=== PATIENT | male | born 1955 | race Caucasian/White ===

== ENCOUNTER 2024-02-15 08:36 | Inpatient (IN) | payer OTHER, BC ==
[~2024-02-15] VITALS: Ht 154.9 cm; Wt 88.5 kg
[2024-02-15] MEDS ORDERED: METFORMIN HCL850 MG (09:08)
[2024-02-15] MEDS ORDERED: LOPERAMIDE2 M1 (09:08)
[2024-02-15] MEDS ORDERED: PRAVASTATIN SOD40 MG PO (09:09)
[2024-02-15] MEDS ORDERED: TENORMIN25 MG PO (09:09)
[2024-02-15] MEDS ORDERED: ZETIA10 MG (09:09)
[2024-02-15] MEDS ORDERED: HYDROCHLOROTH12.5 MG (09:10)
[2024-02-15] MEDS ORDERED: VASOTEC20 M1 PO (09:10)
[2024-02-15] MEDS ORDERED: 0.9 % SODIUM CHLORIDE 1,000 ML IV STA ×2 (09:50→15:37)
[2024-02-15] MEDS ORDERED: MEPERIDINE HCL/PF 50 MG/ML VIAL IM STA (09:51)
[2024-02-15 10:43] LABS: HEMATOCRIT 42.8 % (39.0-48.0); HEMOGLOBIN 14.4 g/dL (13-16.00); MEAN CELL VOLUME 96.9 fL (80.0-100.00); MEAN CORPUSCULAR HEMOGLOBIN 32.7 pg (27.00-32.0); MEAN CORPUSCULAR HGB CONC 33.8 g/dl (32.0-36.0); PLATELET COUNT 249 K/uL (150-450); RED BLOOD COUNT 4.41 M/uL (4.00-6.00)
[2024-02-15 10:58] LABS: ALBUMIN 4.9 gm/dL (3.4-5.0); BILIRUBIN TOTAL 0.57 mg/dL (0.3-1.2); BILIRUBIN,CONJUGATED 0.14 mg/dL (0.0-0.2); BILIRUBIN,UNCONJUGATED 0.43 mg/dL (0.0-0.6); GFR 12.8; POTASSIUM 5.25 mEq/L (3.5-5.1); TOTAL PROTEIN 8.9 gm/dL (6.4-8.2)
[2024-02-15 11:06] LABS: CREATININE SERUM 4.58 mg/dL (0.70-1.30)
[2024-02-15] MEDS ORDERED: ONDANSETRON HCL 2 MG/ML VIAL IV ONE (15:45)
[2024-02-15] MEDS ORDERED: FAMOTIDINE/PF 20 MG/2 ML VIAL IV ONE (15:45)
[2024-02-15] MEDS ORDERED: ONDANSETRON HCL 4 MG in 0.9 % SODIUM CHLORIDE 50 ML IV PRN (19:00)
[2024-02-15] MEDS ORDERED: DEXTROSE 50 % IN WATER 0.5 G/ML DISP.SYRIN IV PRN (19:00)
[2024-02-15] MEDS ORDERED: 0.9 % SODIUM CHLORIDE 1,000 ML IV SCH (19:00)
[2024-02-15] MEDS ORDERED: INSULIN LISPRO 1,000 UNIT/10 ML UNITS SUBCUTANEO PRN (19:00)
[2024-02-15] MEDS ORDERED: ACETAMINOPHEN 500 MG GEL..CAP PO PRN (19:00)
[2024-02-15 20:18] LABS: PH,URINE 5.5 (5.0-8.0); URINE APPEARANCE Clear; URINE BILIRRUBIN Negative (NEGATIVE); URINE BLOOD Negative; URINE COLOR Yellow; URINE GLUCOSE Negative (NEGATIVE); URINE KETONE Trace (NEGATIVE); URINE LEUKOCYTE Negative; URINE NITRATE Negative; URINE PROTEIN 30 (NEGATIVE); URINE UROBILINOGEN 0.2 E.U./dl
[2024-02-15 20:22] LABS: URINE BACTERIA 23.9 uL (0.0-1933); URINE CAST 5.03 uL (0.0-1.40); URINE EPITHELIAL CELLS 2.1 uL (0.0-38.8); URINE RBC 5.6 uL (0.0-20.8); URINE WBC 3.2 uL (0.0-23.2)
[2024-02-15 20:29] LABS: INR 1.02; PARTIAL THROMBOPLASTIN TIME 24.8 SECONDS (22.0-34.0); PROTHROMBIN TIME 11.1 SECONDS (9.0-11.5)
[2024-02-15 20:32] LABS: URINE CRYSTALS MODERATE /HPF
[2024-02-15 22:00] VITALS: BP 109/71; O2SAT 97
[2024-02-16 00:52] VITALS: BP 122/74; O2SAT 99
[2024-02-16 06:57] LABS: HEMATOCRIT 38.7 % (39.0-48.0); HEMOGLOBIN 13.2 g/dL (13-16.00); MEAN CELL VOLUME 96.4 fL (80.0-100.00); MEAN CORPUSCULAR HGB CONC 34.2 g/dl (32.0-36.0); PLATELET COUNT 204 K/uL (150-450); RED BLOOD COUNT 4.01 M/uL (4.00-6.00); RED CELL DISTRIBUTION WIDTH 13.4 % (11.5-14.5)
[2024-02-16 07:15] LABS: ALBUMIN 3.9 gm/dL (3.4-5.0); BILIRUBIN TOTAL 0.5 mg/dL (0.3-1.2); CALCIUM 10.3 mg/dL (8.5-10.1); CREATININE SERUM 2.6 mg/dL (0.70-1.30); GFR 24.6; GLOBULINA 3.4 G/DL (2.4-3.5); POTASSIUM 4.53 mEq/L (3.5-5.1); TOTAL PROTEIN 7.3 gm/dL (6.4-8.2)
[2024-02-16] MEDS ORDERED: ATENOLOL 25 MG TABLET PO SCH (09:00)
[2024-02-16] MEDS ORDERED: ENOXAPARIN SODIUM 30 MG/0.3 ML SYRINGE SUBCUTANEO SCH (09:00)
[2024-02-16] MEDS ORDERED: FAMOTIDINE/PF 20 MG in 0.9 % SODIUM CHLORIDE 8 ML IV PUSH SCH (09:00)
[2024-02-16] MEDS ORDERED: LOPERAMIDE HCL 2 MG CAPSULE PO SCH (09:00)
[2024-02-16] MEDS ORDERED: ATORVASTATIN CALCIUM 40 MG TABLET PO SCH (09:00)
[2024-02-16] MEDS ORDERED: CEFTRIAXONE SODIUM 2,000 MG in 0.9 % SODIUM CHLORIDE 100 ML IV SCH (09:00)
[2024-02-16 10:25] VITALS: BP 104/63; O2SAT 99
[2024-02-16 12:38] LABS: PH,URINE 5.5 (5.0-8.0); URINE APPEARANCE Clear; URINE BILIRRUBIN Negative (NEGATIVE); URINE BLOOD Negative; URINE COLOR Yellow; URINE GLUCOSE Negative (NEGATIVE); URINE KETONE Negative (NEGATIVE); URINE LEUKOCYTE Negative; URINE NITRATE Negative; URINE PROTEIN Negative (NEGATIVE); URINE UROBILINOGEN 0.2 E.U./dl
[2024-02-16 12:40] LABS: URINE BACTERIA 7.5 uL (0.0-1933); URINE CAST 4.42 uL (0.0-1.40); URINE EPITHELIAL CELLS 4.4 uL (0.0-38.8); URINE RBC 8.8 uL (0.0-20.8); URINE WBC 3.8 uL (0.0-23.2)
[2024-02-16 13:18] LABS: URINE CRYSTALS FEW /HPF
[2024-02-16 18:36] VITALS: BP 132/75; O2SAT 99
[2024-02-17 01:45] VITALS: BP 115/70; O2SAT 96
[2024-02-17 06:16] LABS: HEMATOCRIT 40.6 % (39.0-48.0); HEMOGLOBIN 13.7 g/dL (13-16.00); MEAN CELL VOLUME 96.3 fL (80.0-100.00); MEAN CORPUSCULAR HEMOGLOBIN 32.5 pg (27.00-32.0); MEAN CORPUSCULAR HGB CONC 33.8 g/dl (32.0-36.0); PLATELET COUNT 194 K/uL (150-450); RED BLOOD COUNT 4.22 M/uL (4.00-6.00); RED CELL DISTRIBUTION WIDTH 12.9 % (11.5-14.5)
[2024-02-17 06:38] LABS: ALBUMIN 3.9 gm/dL (3.4-5.0); ALKALINE PHOSPHATASE 51 U/L (50-136); ALT/SGPT 20 U/L (12-78); ANION GAP 9 (10.0-20.0); AST/SGOT 12 U/L (15-37); BILIRUBIN TOTAL 0.59 mg/dL (0.3-1.2); BLOOD UREA NITROGEN 41 mg/dL (7-18); BUN CREA RATIO 25 (7.0-25.0); CALCIUM 9.7 mg/dL (8.5-10.1); CARBON DIOXIDE 26 mEq/L (21-32); CHLORIDE 110 mmol/L (98-107); CREATININE SERUM 1.65 mg/dL (0.70-1.30); GFR 41.57; GLOBULINA 3.3 G/DL (2.4-3.5); GLUCOSE FASTING 111 mg/dL (65-100); OSMOLALITY SERUM 292 MOSM/KG (275-295); PHOSPHOROUS 2.8 mg/dL (2.5-4.9); POTASSIUM 4.18 mEq/L (3.5-5.1); SODIUM 141 mmol/L (136-145); TOTAL PROTEIN 7.2 gm/dL (6.4-8.2)
[2024-02-17 06:39] LABS: C-REACTIVE PROTEIN < 0.29 MG/DL (0.00-0.29)
[2024-02-17 09:08] VITALS: BP 121/78
[2024-02-17] MEDS ORDERED: LACTOBACILLUS ACIDOPHILUS 1 CAP CAP PO SCH (17:00)
[2024-02-17 19:22] VITALS: BP 139/75; O2SAT 98
[2024-02-18 02:03] VITALS: BP 138/81; O2SAT 97
[2024-02-18 09:49] VITALS: BP 140/85; O2SAT 98
[2024-02-18 14:14] LABS: ALBUMIN 3.5 gm/dL (3.4-5.0); BILIRUBIN TOTAL 0.43 mg/dL (0.3-1.2); CALCIUM 9.4 mg/dL (8.5-10.1); CREATININE SERUM 1.29 mg/dL (0.70-1.30); GFR 55.22; GLOBULINA 3.2 G/DL (2.4-3.5); MAGNESIUM 1.5 mg/dL (1.8-2.4); PHOSPHOROUS 2.9 mg/dL (2.5-4.9); POTASSIUM 4.02 mEq/L (3.5-5.1); TOTAL PROTEIN 6.7 gm/dL (6.4-8.2)
[2024-02-18 18:58] VITALS: BP 135/79; O2SAT 97
== END 2024-02-18 21:24 | disposition home or self-care (01) | DRG 684 ==
LOC: ER 08:38 → MEDJ 19:35
PROVIDERS: General Practice; Internal Medicine Infectious Disease; ADMIT Internal Medicine; ATTEND Internal Medicine
PROC: BW21ZZZ Computerized Tomography (CT Scan) of Abdomen and Pelvis (ICD-10-PCS; principal; 2024-02-15)
PROC: BW40ZZZ Ultrasonography of Abdomen (ICD-10-PCS; 2024-02-16)
DX: N17.9 Acute kidney failure, unspecified (principal); E86.0 Dehydration; E78.5 Hyperlipidemia, unspecified